=== PATIENT | male | born 1990 | race Caucasian/White ===

== ENCOUNTER 2017-11-26 12:41 | Emergency (ER) | payer SELFPAY ==
--- NOTE | 2017-11-26 13:25 | EDM.PDOC ---
ED HPI GENERAL MEDICAL PROBLEM - General Chief Complaint: Lower Extremity Injury/Pain Stated Complaint: HURT CLEMENTE Time Seen by Provider: 11/26/17 13:15 Source of Information: Reports: Patient History Limitations: Reports: No Limitations - History of Present Illness INITIAL COMMENTS - FREE TEXT/NARRATIVE: 27-year-old male had a complication with several dogs while on the job, he had to shoot one of the dogs but in the process fell backwards slightly rotating his left ankle and also landing on the left buttock and tailbone area. He is able to ambulate with little difficulty. He is in from work to clear him of his injuries. Onset: Sudden Duration: Hour(s): (Within the last 2 hours) Location: Reports: Lower Extremity, Left Severity: Mild - Related Data Allergies Allergy/AdvReac Type Severity Reaction Status Date / Time amoxicillin Allergy Cannot Verified 11/26/17 13:04 Remember cefaclor [From Ceclor] Allergy Cannot Verified 11/26/17 13:04 Remember Sulfa (Sulfonamide Allergy Cannot Verified 11/26/17 13:04 Antibiotics) Remember Home Meds: Home Meds NK [No Known Home Meds] 11/26/17 [History] Past Medical History - Past Health History Medical/Surgical History: Denies Medical/Surgical History Social & Family History - Tobacco Use Smoking Status *Q: Never Smoker Review of Systems - Review of Systems Review Of Systems: See Below Constitutional: Denies: Fever Respiratory: Denies: Shortness of Breath GI/Abdominal: Denies: Abdominal Pain Skin: Reports: Other (A few superficial abrasions on the left buttock and left posterior thigh) ED EXAM, GENERAL - Physical Exam Exam: See Below Exam Limited By: No Limitations General Appearance: Alert, No Apparent Distress Respiratory/Chest: No Respiratory Distress Extremities: Other (Patient has a superficial abrasion and slight bruise on the left buttock, a superficial abrasion on the posterior left thigh. The left ankle shows no significant evidence of trauma, there is no swelling crepitus or point tenderness.) Course - Vital Signs Last Recorded V/S: Last Vital Signs Temp 97 F 11/26/17 13:09 Pulse 101 H 11/26/17 13:09 Resp 16 11/26/17 13:09 BP 143/95 H 11/26/17 13:09 Pulse Ox 95 11/26/17 13:09 - Re-Assessments/Exams Free Text/Narrative Re-Assessment/Exam: 11/26/17 13:23 Conservative therapy, ibuprofen or Tylenol and icing sore areas should be all that is necessary. He can recheck next week if not improving satisfactorily. Departure - Departure Time of Disposition: 13:32 Disposition: Home, Self-Care 01 Condition: Good Clinical Impression: Leg abrasion, non-infected, Contusion of hip Left ankle strain Qualifiers: Encounter type: initial encounter Qualified Code(s): S96.912A - Strain of unspecified muscle and tendon at ankle and foot level, left foot, initial encounter - Discharge Information Instructions: Contusion, [id number] Referrals: PCP,None [Primary Care Provider] - Forms: ED Department Discharge Care Plan Goals: Continue activity as tolerated, icing sore areas may help for the next 2 days and ibuprofen or naproxen may also help. Recheck in 2-3 days if not improving satisfactorily.
== END 2017-11-26 13:32 | disposition home or self-care (01) ==
LOC: JP.ED 12:41
DX: S96.912A Strain of unspecified muscle and tendon at ankle and foot level, left foot, initial encounter (principal); Z88.1 Allergy status to other antibiotic agents; Z88.2 Allergy status to sulfonamides; W19.XXXA Unspecified fall, initial encounter; Y99.0 Civilian activity done for income or pay
CPT/HCPCS: 99283

== ENCOUNTER 2023-01-16 12:32 | Emergency (ER) | payer BC ==
[2023-01-16] MEDS ORDERED: Ondansetron 4 MG Tab.DIS PO ONE (12:54)
[2023-01-16] MEDS ORDERED: Acetaminophen/oxyCODONE 325-5 MG Tab PO PRN (12:55)
[2023-01-16] MEDS ORDERED: Diphtheria,Pertussis(Acell),Tetanus Vaccine 0.5 ML Syringe IM ONE (13:09)
[2023-01-16] MEDS ORDERED: Lidocaine 1% 10 ML MDV INJECT ONE (13:46)
== END 2023-01-16 14:43 | disposition home or self-care (01) ==
LOC: JP.ED 12:32
DX: S60.551A Superficial foreign body of right hand, initial encounter (principal); Z88.1 Allergy status to other antibiotic agents; Z88.2 Allergy status to sulfonamides; Z23 Encounter for immunization; W45.8XXA Other foreign body or object entering through skin, initial encounter
CPT/HCPCS: 73120; 90471; 90715; 99283; A9270; Q0162